=== PATIENT | male | born 1995 | race African-American/Black ===

== ENCOUNTER 2016-12-27 08:54 | Outpatient (CLI) | payer OTHER ==
[2016-12-27] MEDS ORDERED: ALBUTEROL NEB 2.5 MG/3 ML INH ONE (11:00)
== END 2016-12-27 08:55 | disposition home or self-care (01) ==
LOC: RT 08:54
PROVIDERS: ATTEND Student in an Organized Health Care Education/Training Program
DX: R06.00 Dyspnea, unspecified (principal)
CPT/HCPCS: 94060; 94664; 94729; J7613

== ENCOUNTER 2017-04-16 08:41 | Outpatient (CLI) | payer OTHER ==
[~2017-04-16 08:41] MED LIST: GADOBUTROL 7.5 MMOL/7.5 ML VIAL ONE
[2017-04-16] MEDS ORDERED: GADOBUTROL 7.5 MMOL/7.5 ML VIAL IVP ONE (09:39)
--- NOTE | 2017-04-16 10:16 | MRI Preliminary Report ---
Exam: MRI BRAIN W/WO IMPRESSION: 1. Normal contrast enhanced MRI of the brain [facility] SITE ID: [id number]
--- NOTE | 2017-04-16 11:01 | MRI Report ---
EXAM: MRI BRAIN WITHOUT AND WITH CONTRAST EXAM DATE: 04/16/2017 09:52 AM. CLINICAL HISTORY: New onset retroorbital headache. COMPARISON: None available. TECHNIQUE: Multiplanar, multisequence T1-weighted and fluid-sensitive MR sequences of the brain were performed. Sequences optimized for assessment of the pituitary region. Other: None. IV Contrast: 7 mL Gadavist. FINDINGS: No cerebellar tonsillar ectopia is present. No abnormal diffusion signal or magnetic susceptibility is identified in the brain parenchyma. Ventricles and sulci are within normal limits. No extraaxial fluid collection is present. No abnormal T2 or FLAIR hyperintense signal is identified in the brain parenchyma. The pituitary gland is normal in size and enhances in a homogeneous fashion. The pituitary stalk is n ot thickened. No mass is present involving the optic chiasm. No enhancing mass is identified in the b rain parenchyma. Expected enhancement is seen in the major dural venous sinuses. No mass is present in either orbit. The superior ophthalmic veins are symmetric in size. No mass is p resent in either cavernous sinus or in either Meckel's cave. Scattered paranasal sinus mucosal thickening is present. IMPRESSION: 1. Normal contrast enhanced MRI of the brain with special attention to the sella turcica. [facility] Referring Provider Line: [phone] SITE ID: [id number]
== END 2017-04-16 08:42 | disposition home or self-care (01) ==
LOC: DI 08:41
PROVIDERS: ATTEND Pediatrics
DX: R51 Headache (principal)
CPT/HCPCS: 70553; A9585